=== PATIENT | female | born 1940 | race Caucasian/White ===

== ENCOUNTER 2017-01-30 05:29 | Day surgery (SDC) | payer OTHER ==
[~2017-01-30] VITALS: Ht 154.9 cm; Wt 95.3 kg
[2017-01-30] MEDS ORDERED: SECONDARY IV SET 1 EA INFUS.SET MC ONE (08:12)
[2017-01-30] MEDS ORDERED: CEFAZOLIN SODIUM/DEXTROSE,ISO 50 ML IV ONE (08:12)
[2017-01-30] MEDS ORDERED: IV SET PRIMARY 1 EA INFUS.SET MC ONE (08:12)
[2017-01-30] MEDS ORDERED: NEEDLELESS EST SET LARGE BORE 1 EA INFUS.SET MC ONE (08:12)
[2017-01-30] MEDS ORDERED: BUPIVACAINE 0.5 % PF 150 MG/30 ML VIAL ONE (08:27)
[2017-01-30] MEDS ORDERED: FENTANYL PF 100MCG/2ML AMPUL ONE (08:36)
[2017-01-30] MEDS ORDERED: SEVOFLURANE 250 ML BOTTLE IH ONE (08:41)
== END 2017-01-30 10:50 ==
LOC: DS 05:29
PROVIDERS: ATTEND Specialist
DX: T84.84XA Pain due to internal orthopedic prosthetic devices, implants and grafts, initial encounter (principal); Y83.9 Surgical procedure, unspecified as the cause of abnormal reaction of the patient, or of later complication, without mention of misadventure at the time of the procedure; Y92.89 Other specified places as the place of occurrence of the external cause; Z88.8 Allergy status to other drugs, medicaments and biological substances; Z91.048 Other nonmedicinal substance allergy status; I10 Essential (primary) hypertension; M19.90 Unspecified osteoarthritis, unspecified site; E66.01 Morbid (severe) obesity due to excess calories; Z85.3 Personal history of malignant neoplasm of breast
CPT/HCPCS: 20680 ×2; 71010; 73552; 88300; 93005 ×2; A6402; J0690; J1100; J1885; J2405; J2704; J3010; J3490